=== PATIENT | female | born 1980 | race Caucasian/White ===

== ENCOUNTER 2020-05-03 09:28 | Emergency (ER) | payer MEDICAID ==
[2020-05-03 10:21] LABS: HCG UR QUAL NEGATIVE
[2020-05-03 10:27] LABS: BASOPHILS % (AUTO) 0.4 %; EOSINOPHILS % (AUTO) 0.2 %; HCT - HEMATOCRIT 31.9 % (37.0-47.0); HGB - HEMOGLOBIN 9.8 g/dL (12.0-16.0); LYMPHOCYTES % (AUTO) 22.7 %; MEAN CORPUSCULAR HEMOGLOBIN 26.9 pg (27.0-31.0); MEAN CORPUSCULAR HGB CONC 30.7 g/dL (32.0-36.0); MEAN CORPUSCULAR VOLUME 87.6 fL (81.0-99.0); MEAN PLATELET VOLUME 11.1 fL (7.9-10.8); NEUTROPHILS % (AUTO) 71.4 %; PLT - PLATELET COUNT 192 10^3/uL (130-450); RED BLOOD COUNT 3.64 10^6/uL (4.20-5.40); RED CELL DISTRIBUTION WIDTH 21.3 % (12.0-15.0); WHITE BLOOD COUNT 5.5 x10^3/uL (4.8-10.8)
[2020-05-03 10:30] LABS: ABNORMAL LYMPHS % (MANUAL) 0 %; INR 1.7 (0.8-1.2); PT - PROTHROMBIN TIME 18.9 secs (9.9-12.6)
[2020-05-03] MEDS ORDERED: SODIUM CHLORIDE 0.9% 1,000 ML IV STA ×3 (10:32→11:07)
[2020-05-03] MEDS ORDERED: ONDANSETRON 4 MG/2 ML VIAL IVP STA (10:32)
[2020-05-03] MEDS ORDERED: MORPHINE 2 MG/ML CARPUJECT IVP STA ×3 (10:32→15:11)
--- NOTE | 2020-05-03 10:37 | ED Physician Documentation ---
History of Present Illness - Stated complaint Stated Complaint: N/V YELLOWING EYES - Chief complaint Chief Complaint: Abd Pain - History obtained from History obtained from: Patient - History of Present Illness Timing: Today Pain level max: 8 Pain level now: 7 - Additonal information Additional information: 40-year-old female presents to the emergency department with nausea and vomiting for the past 3 to 4 days. She has chronic back pain. She states that she has a history of "fatty liver disease". She states that she used to drink 2 pints of alcohol per day. Recently moved here from [place]. She states she is out of her tramadol. Does not have a doctor here yet. Does not know if she has a history of cirrhosis or not. She states she has noticed yellowing of her eyes over the past few days. No blood in the vomit or stool. No abdominal pain or cramping. Nothing makes it better. Worse with eating and drinking. She states she has not had diarrhea for 2 days. She has not vomited today. Review of Systems Ten Systems: 10 systems reviewed and negative Constitutional: denies: Fever, Chills Respiratory: denies: Cough GI: denies: Nausea, Vomiting, Diarrhea Musculoskeletal: denies: Neck pain, Back pain Neurologic: denies: Headache PD PAST MEDICAL HISTORY - Past Medical History Past Medical History: Yes Musculoskeletal: Chronic back pain Other Past Medical History: "Fatty liver". - Past Surgical History Past Surgical History: No - Present Medications Home Medications: Ambulatory Orders Medication Instructions Recorded Confirmed Gabapentin [Neurontin] 100 mg PO TID 05/03/20 05/03/20 Ketorolac [Toradol] 10 mg PO Q6H PRN 05/03/20 05/03/20 traMADol [Ultram] 50 mg PO Q4-6H PRN 05/03/20 05/03/20 - Allergies Allergies/Adverse Reactions: Allergies Allergy/AdvReac Type Severity Reaction Status Date / Time codeine Allergy Rash Verified 05/03/20 09:41 - Living Situation Living Situation: reports: With family Living Arrangement: reports: At home - Social History Does the pt smoke?: Yes Does the pt drink ETOH?: Yes Does the pt have substance abuse?: No PD ED PE NORMAL - Vitals Vital signs reviewed: Yes - General General: Alert and oriented X 3, No acute distress - HEENT HEENT: Moist mucous membranes - Neck Neck: Supple, no meningeal sign - Cardiac Cardiac: RRR - Respiratory Respiratory: No respiratory distress, Clear bilaterally - Abdomen Abdomen: Other (distended) - Derm Derm: Warm and dry - Extremities Extremities: No edema, No calf tenderness / cord - Neuro Neuro: Alert and oriented X 3 - Psych Psych: Normal mood, Normal affect Results - Vitals Vitals: Vital Signs - 24 hr 05/03/20 05/03/20 05/03/20 09:38 11:00 13:31 Temperature 36.2 C L Heart Rate 122 H 111 H 108 H Respiratory 16 18 16 Rate Blood Pressure 94/52 L 113/58 L 104/70 O2 Saturation 95 98 93 05/03/20 05/03/20 15:10 15:17 Temperature Heart Rate 106 H 102 H Respiratory 16 16 Rate Blood Pressure 90/65 99/53 L O2 Saturation 96 96 Oxygen O2 Source Room air - Labs Labs: Laboratory Tests 05/03/20 05/03/20 05/03/20 10:05 10:15 10:15 WBC 5.5 RBC 3.64 L Hgb 9.8 L Hct 31.9 L MCV 87.6 MCH 26.9 L MCHC 30.7 L RDW 21.3 H Plt Count 192 MPV 11.1 H Neut # (Auto) Not Reportable Lymph # (Auto) Not Reportable [place] # (Auto) Not Reportable Eos # (Auto) Not Reportable Baso # (Auto) Not Reportable Absolute Nucleated RBC Not Reportable Total Counted 100 Band Neuts % (Manual) 5 Reactive Lymphs % (Man) 3 Abnorm Lymph % (Manual) 0 Nucleated RBC % Not Reportable Neutrophils # (Manual) 4.1 Lymphocytes # (Manual) 1.2 L Monocytes # (Manual) 0.2 Eosinophils # (Manual) 0.0 Basophils # (Manual) 0.0 Differential Comment MANUAL DIFFERENTIAL WBC Morphology 1+ TOXIC GRANULATION Platelet Estimate NORMAL (130-450,000) Platelet Morphology NORMAL APPEARANCE RBC Morph Micro Appear 1+ POLYCHROMASIA PT 18.9 H INR 1.7 H APTT 46.8 H Sodium Potassium Chloride Carbon Dioxide Anion Gap BUN Creatinine Estimated GFR (MDRD) Glucose Calcium Total Bilirubin AST ALT Alkaline Phosphatase Total Protein Albumin Globulin Albumin/Globulin Ratio Lipase Urine Color Cancelled Urine Clarity Cancelled Urine pH Cancelled Ur Specific [place] Cancelled Urine Protein Cancelled Urine Glucose (UA) Cancelled Urine Ketones Cancelled Urine Occult Blood Cancelled Urine Nitrite Cancelled Urine Bilirubin Cancelled Urine Ictotest Cancelled Urine Urobilinogen Cancelled Ur Leukocyte Esterase Cancelled Urine RBC Urine WBC Ur Squamous Epith Cells Urine Bacteria Ur Microscopic Review Cancelled Urine Culture Comments Cancelled Urine HCG, Qual NEGATIVE Ethyl Alcohol Infectious [place] Assay 05/03/20 05/03/20 05/03/20 10:15 10:15 12:05 WBC RBC Hgb Hct MCV MCH MCHC RDW Plt Count MPV Neut # (Auto) Lymph # (Auto) [place] # (Auto) Eos # (Auto) Baso # (Auto) Absolute Nucleated RBC Total Counted Band Neuts % (Manual) Reactive Lymphs % (Man) Abnorm Lymph % (Manual) Nucleated RBC % Neutrophils # (Manual) Lymphocytes # (Manual) Monocytes # (Manual) Eosinophils # (Manual) Basophils # (Manual) Differential Comment WBC Morphology Platelet Estimate Platelet Morphology RBC Morph Micro Appear PT INR APTT Sodium 131 L Potassium 3.2 L Chloride 89 L Carbon Dioxide 21 Anion Gap 21.0 H BUN 15 Creatinine 0.8 Estimated GFR (MDRD) 79 L Glucose 112 H Calcium 8.4 L Total Bilirubin 4.0 H AST 157 H ALT 28 Alkaline Phosphatase 182 H Total Protein 7.6 Albumin 2.5 L Globulin 5.1 H Albumin/Globulin Ratio 0.5 L Lipase 285 H Urine Color ORANGE Urine Clarity CLEAR Urine pH 6.0 Ur Specific [place] 1.015 Urine Protein NEGATIVE Urine Glucose (UA) NEGATIVE Urine Ketones NEGATIVE Urine Occult Blood NEGATIVE Urine Nitrite POSITIVE H Urine Bilirubin MODERATE H Urine Ictotest Urine Urobilinogen 1 (NORMAL) Ur Leukocyte Esterase SMALL H Urine RBC 0-5 Urine WBC 4-5 Ur Squamous Epith Cells RARE Squamous Urine Bacteria Moderate H Ur Microscopic Review INDICATED Urine Culture Comments INDICATED Urine HCG, Qual Ethyl Alcohol < 5.0 Infectious [place] Assay NEGATIVE - Rads (name of study) CT abd/pelvis Radiology: Prelim report reviewed, See rad report PD MEDICAL DECISION MAKING - ED course Complexity details: reviewed results, re-evaluated patient, considered differential, d/w patient, d/w customer care consultant ED course: 40-year-old female presents to the emergency department with nausea vomiting and abdominal pain for the past 4 days. Appears to have pancreatitis. She is also found to have elevated liver function tests, hepatomegaly and splenomegaly. She has splenic infarcts on her CT scan. Unclear what the origin of this is. Pain well controlled. Still nauseated and unable to eat or drink here. Given Lovenox for the splenic infarct. We do not have GI or hematology here, therefore she will require transfer to a higher level of care. Discussed the case with Ana M Loza, hospitalist, Dr. Karly Willis, who accepts in transfer. COBRA forms completed This document was made in part using voice recognition software. While efforts are made to proofread this document, sound alike and grammatical errors may occur. RUQ US 1. Hepatomegaly. Diffusely increased hepatic echotexture may be secondary to fatty infiltration but other hepatocellular disease cannot be excluded. Please correlate clinically. 2. No gallstones. Gallbladder wall may be mildly thickened could be related to liver disease. If there is clinical suspicion for acute cholecystitis, HIDA scan would be helpful. 3. Splenomegaly. There is a triangular-shaped hypodensity in spleen suspicious for splenic infarct. CT abd/pelvis IMPRESSION: 1. Hepatomegaly and hepatic steatosis. 2. Splenomegaly. Three triangular-shaped low-density areas in peripheral aspect the spleen are compatible with splenic infarcts. 3. A 2 mm nonobstructing stone in left kidney. 4. There is a 1.4 cm low-density soft tissue near the splenic hilum. Differential diagnosis is a lymph node or a cyst or small thrombosed splenic artery aneurysm. 5. A small amount of free fluid in pelvis. Departure - Departure Disposition: 02 Transfer Acute Care Hosp Clinical Impression: Splenic infarct, Splenomegaly, Hepatomegaly Pancreatitis Qualifiers: Chronicity: acute Pancreatitis type: alcohol induced Acute pancreatitis complication: unspecified Qualified Code(s): K85.20 - Alcohol induced acute pancreatitis without necrosis or infection Vomiting Qualifiers: Vomiting type: unspecified Vomiting Intractability: non-intractable Nausea presence: with nausea Qualified Code(s): R11.2 - Nausea with vomiting, unspecified Condition: Stable
[2020-05-03 10:38] LABS: ALBUMIN 2.5 g/dL (3.2-5.5); ALBUMIN/GLOBULIN RATIO 0.5 (1.0-2.2); ALKALINE PHOSPHATASE 182 IU/L (42-121); ALT ALANINE AMINOTRANSFERASE 28 IU/L (10-60); AST ASPARTATE AMINOTRANSFERASE 157 IU/L (10-42); BUN - BLOOD UREA NITROGEN 15 mg/dL (6-20); CALCIUM 8.4 mg/dL (8.5-10.3); CARBON DIOXIDE - CO2 21 mmol/L (21-32); CHLORIDE 89 mmol/L (101-111); CREATININE 0.8 mg/dL (0.4-1.0); ETOH - ETHANOL < 5.0 mg/dL; GFR - MDRD 79 (>89); GLUCOSE 112 mg/dL (70-100); LIPASE 285 U/L (22-51); PARTIAL THROMBOPLASTIN TIME 46.8 secs (24.9-33.3); POTASSIUM 3.2 mmol/L (3.5-5.0); SODIUM 131 mmol/L (135-145); TOTAL PROTEIN 7.6 g/dL (6.7-8.2)
[2020-05-03 11:15] LABS: BAND NEUTROPHILS % (MANUAL) 5 %; LYMPHOCYTES # (MANUAL) 1.2 10^3/uL (1.5-3.5); LYMPHOCYTES % (MANUAL) 19 %; MONOCYTES # (MANUAL) 0.2 10^3/uL (0.0-1.0); NEUTROPHILS # (MANUAL) 4.1 10^3/uL (1.5-6.6); REACTIVE LYMPHS % (MANUAL) 3 %
[2020-05-03 11:16] LABS: PLATELET ESTIMATE, MANUAL NORMAL (130-450,000) (NORMAL); PLATELET MORPHOLOGY NORMAL APPEARANCE (NORMAL); WBC MORPHOLOGY (MULTIPLE) 1+ TOXIC GRANULATION (NORMAL)
[2020-05-03 11:17] LABS: DIFFERENTIAL COMMENT MANUAL DIFFERENTIAL
[2020-05-03 12:15] LABS: GLUCOSE, URINE (UA) NEGATIVE (NEGATIVE); KETONES,URINE (UA) NEGATIVE (NEGATIVE); LEUKOCYTE ESTERASE, URINE SMALL (NEGATIVE); NITRITE,URINE POSITIVE (NEGATIVE); OCCULT BLOOD,URINE NEGATIVE (NEGATIVE); PROTEIN,URINE NEGATIVE (NEGATIVE); UROBILINOGEN,URINE 1 (NORMAL) E.U./dL (NORMAL)
[2020-05-03 12:21] LABS: BILIRUBIN,URINE MODERATE (NEGATIVE); CLARITY,URINE CLEAR (CLEAR); ICTOTEST,URINE POSITIVE; RBC,URINE 0-5 /HPF (0-5); SQUAMOUS EPITHELIAL CELL,UR RARE Squamous (<= Few)
[2020-05-03 12:22] LABS: BACTERIA,URINE Moderate /HPF (None Seen)
[2020-05-03 12:24] LABS: INFECTIOUS MONONUCLEOSIS NEGATIVE (Negative)
--- NOTE | 2020-05-03 12:27 | Ultrasound Report ---
PROCEDURE: Abdomen Limited INDICATIONS: elevated LFTs, jaundice TECHNIQUE: Real-time focused scanning was performed of the abdomen, with image documentation. COMPARISON: None available. FINDINGS: Liver is enlarged measuring 33.9 cm. The liver demonstrates diffusely increased echotextur e. No gallstones. Better wall may be mildly thickened. No pericholecystic fluid correction or sonographi c Proctor sign. Visualized pancreas is normal. Right kidney is normal without hydronephrosis. There is a triangular shaped hypodensity in spleen measuring 4.2 x 3.5 x 2.9 cm. Spleen is enlarged. IMPRESSION: 1. Hepatomegaly. Diffusely increased hepatic echotexture may be secondary to fatty infiltration but o ther hepatocellular disease cannot be excluded. Please correlate clinically. 2. No gallstones. Gallbladder wall may be mildly thickened could be related to liver disease. If ther e is clinical suspicion for acute cholecystitis, HIDA scan would be helpful. 3. Splenomegaly. There is a triangular-shaped hypodensity in spleen suspicious for splenic infarct. Reviewed by: Yandel Mccullough MD on 05/03/2020 12:25 PM PST Approved by: Yandel Mccullough MD on 05/03/2020 12:25 PM PST Station ID: [id number]
[2020-05-03] MEDS ORDERED: IOVERSOL 320 100 ML VIAL IVP ONE ×2 (13:01→16:04)
--- NOTE | 2020-05-03 14:48 | CT Report ---
PROCEDURE: Abdomen/Pelvis W INDICATIONS: vomiting, splenomegaly on US CONTRAST: IV CONTRAST: Optiray 320 ml: 100 PO CONTRAST: *NO PO CONTRAST TECHNIQUE: After the administration of intravenous contrast, 5 mm thick sections acquired from the diaphragms to the symphysis. 5 mm thick coronal and sagittal reformats were acquired. For radiation dose reducti on, the following was used: automated exposure control, adjustment of mA and/or kV according to obi ent size. COMPARISON: Ultrasound abdomen, 05/03/2020. FINDINGS: Image quality: Excellent. ABDOMEN: Lung bases: Bibasilar atelectasis. Heart size is normal. Solid organs: Hepatic steatosis. Liver is enlarged measuring 24.3 cm in length. Spleen is enlarged. There are 3 triangular shaped hypodensities in spleen, compatible with splenic infarct. Gallbladder i s normal. No radiopaque gallstones. Biliary system is non dilated. Pancreas enhances normally. No adrenal nodules. Kidneys demonstrate normal size and enhancement, without hydronephrosis. There is a 2 mm nonobstructing stone in the left kidney. Peritoneum and bowel: Bowel loops demonstrate normal wall thickness and caliber. No free fluid or a ir. Nodes and vessels: No retroperitoneal or mesenteric adenopathy by size criteria. Aorta and inferior vena cava are normal in size. There is a 1.4 cm low-density soft tissue near the splenic hilum. It could represent a thrombosed splenic artery aneurysm. Miscellaneous: No ventral hernias. PELVIS: Genitourinary: Uterus is absent. Right ovary is normal. Left ovary is not identified. There is a sma ll amount of free fluid in pelvis. Bladder wall thickness is normal. Miscellaneous: No inguinal hernias or adenopathy. Bones: No suspicious bony lesions. No vertebral body compression fractures. IMPRESSION: 1. Hepatomegaly and hepatic steatosis. 2. Splenomegaly. Three triangular-shaped low-density areas in peripheral aspect the spleen are dillan tible with splenic infarcts. 3. A 2 mm nonobstructing stone in left kidney. 4. There is a 1.4 cm low-density soft tissue near the splenic hilum. Differential diagnosis is a lym ph node or a cyst or small thrombosed splenic artery aneurysm. 5. A small amount of free fluid in pelvis. The result was discussed with Dr. Prince. Reviewed by: Yandel Mccullough MD on 05/03/2020 2:46 PM PST Approved by: Yandel Mccullough MD on 05/03/2020 2:46 PM PST Station ID: [id number]
[2020-05-03] MEDS ORDERED: ENOXAPARIN 80 MG/0.8 ML SYRINGE SUBQ STA (16:18)
[2020-05-03 16:27] LABS: B. PARAPERTUSSIS- RESP PCR PAN NOT DETECTED; B. PERTUSSIS- RESP PCR PANEL NOT DETECTED; C. PNEUMONIAE- RESP PCR PANEL NOT DETECTED; CORONAVIRUS 229E-RESP PCR NOT DETECTED; CORONAVIRUS HKU1-RESP PCR NOT DETECTED; CORONAVIRUS NL63-RESP PCR NOT DETECTED; CORONAVIRUS OC43-RESP PCR NOT DETECTED; HUMAN METAPNEUMOVIRUS NOT DETECTED; INFLUENZA A- RESP PCR PANEL NOT DETECTED; INFLUENZA B - RESP PCR PANEL NOT DETECTED; M. PNEUMONIAE- RESP PCR PANEL NOT DETECTED; PARAINFLUENZA VIRUS 1 NOT DETECTED; PARAINFLUENZA VIRUS 2 NOT DETECTED; PARAINFLUENZA VIRUS 3 NOT DETECTED; PARAINFLUENZA VIRUS 4 NOT DETECTED; RHINOVIRUS/ENTEROVIRUS NOT DETECTED; RSV- RESP PCR PANEL NOT DETECTED; SARS-CoV-2 -RESP PCR PANEL NOT DETECTED
[2020-05-03 18:06] VITALS: BP 102/63
== END 2020-05-03 17:50 | disposition short-term general hospital (02) ==
LOC: ED 09:28
DX: K85.20 Alcohol induced acute pancreatitis without necrosis or infection (principal); D73.5 Infarction of spleen; R16.2 Hepatomegaly with splenomegaly, not elsewhere classified; K76.0 Fatty (change of) liver, not elsewhere classified; R11.2 Nausea with vomiting, unspecified; M54.9 Dorsalgia, unspecified; G89.29 Other chronic pain; F17.200 Nicotine dependence, unspecified, uncomplicated; Z20.822 Contact with and (suspected) exposure to COVID-19
CPT/HCPCS: 0202U; 36415; 74177; 76705; 80053; 80320; 81001; 81025; 83690; 85025; 85610; 85730; 86308; 87086; 87181; 96372; 96374; 96376; 99284; 99285; J1650; Q9967; 81003

== ENCOUNTER 2020-05-03 17:50 | Outpatient (CLI) | payer MEDICAID | END 2020-05-03 17:51 | disposition short-term general hospital (02) | LOC: EMS 17:50 | PROVIDERS: ATTEND Emergency Medicine | DX: D73.5 Infarction of spleen (principal); K75.9 Inflammatory liver disease, unspecified; K85.90 Acute pancreatitis without necrosis or infection, unspecified | CPT/HCPCS: A0425; A0428 ==